=== PATIENT | male | born 1995 | race Caucasian/White ===

== ENCOUNTER 2017-12-21 02:12 | Emergency (ER) | payer OTHER ==
[2017-12-21] MEDS ORDERED: NORMAL SALINE 1000 ML 1,000 ML IV ONE (03:01)
[2017-12-21] MEDS ORDERED: ONDANSETRON HCL INJ/PF 4 MG/2 ML SDV IV ONE (03:01)
--- NOTE | 2017-12-21 03:01 | ER Document Report ---
ED GI/ - General Chief Complaint: Nausea/Vomiting/Diarrhea Stated Complaint: ABDOMINAL PAIN Time Seen by Provider: 12/21/17 03:00 Notes: The patient is a 22-year-old male, no past medical history, presents with 4 days of nausea, vomiting and watery diarrhea. He is also having some epigastric pain. Patient denies hematemesis, fevers, blood in his stool, urinary symptoms, chest pain, shortness of breath, recent travel, recent antibiotic use or back pain. TRAVEL OUTSIDE OF THE [place] IN LAST 30 DAYS: No - Related Data Allergies/Adverse Reactions: No Known Allergies Allergy (Unverified 12/21/17 02:12) Past Medical History - General Information source: Patient - Social History Smoking Status: Unknown if Ever Smoked Family History: Reviewed & Not Pertinent - Immunizations Immunizations up to date: Yes Hx Diphtheria, Pertussis, Tetanus Vaccination: Yes Review of Systems - Review of Systems Notes: REVIEW OF SYSTEMS: CONSTITUTIONAL: -fevers, -chills EENT: -eye pain, -difficulty swallowing, -nasal congestion CARDIOVASCULAR: -chest pain, -syncope. RESPIRATORY: -cough, -SOB GASTROINTESTINAL: +epigastric abdominal pain, +nausea, +vomiting, -diarrhea GENITOURINARY: -dysuria, -hematuria MUSCULOSKELETAL: -back pain, -neck pain SKIN: -rash or skin lesions. HEMATOLOGIC: -easy bruising or bleeding. LYMPHATIC: -swollen, enlarged glands. NEUROLOGICAL: -altered mental status or loss of consciousness, -headache, - neurologic symptoms PSYCHIATRIC: -anxiety, -depression. ALL OTHER SYSTEMS REVIEWED AND NEGATIVE. Physical Exam - Vital signs Vitals: Temp Pulse Resp BP Pulse Ox 98.3 F 100 18 124/70 99 12/21/17 02:15 12/21/17 02:15 12/21/17 02:15 12/21/17 02:15 12/21/17 02:15 - Notes Notes: PHYSICAL EXAMINATION: GENERAL: Well-appearing, well-nourished and in no acute distress. HEAD: Atraumatic, normocephalic. EYES: Pupils equal round and reactive to light, extraocular movements intact, sclera anicteric, conjunctiva are normal. ENT: nares patent, oropharynx clear without exudates. Moist mucous membranes. NECK: Normal range of motion, supple without lymphadenopathy LUNGS: Breath sounds clear to auscultation bilaterally and equal. No wheezes rales or rhonchi. HEART: Regular rate and rhythm without murmurs ABDOMEN: Soft, epigastric tenderness, normoactive bowel sounds. No guarding, no rebound. No masses appreciated. EXTREMITIES: Normal range of motion, no pitting or edema. No cyanosis. NEUROLOGICAL: Cranial nerves grossly intact. Normal speech, normal gait. Normal sensory and motor exams. PSYCH: Normal mood, normal affect. SKIN: Warm, Dry, normal turgor, no rashes or lesions noted. Course - Re-evaluation Re-evalutation: Patient feels much better after Zofran, fluids, Protonix and GI cocktail. His blood work is unremarkable, other than a leukocytosis, which is most likely related to his vomiting. He has no risk factors for C. difficile or concerning infectious causes of diarrhea. Instructed patient to continue to stay hydrated. Will send home with Zofran, Pepcid and given very strict return precautions. - Vital Signs Vital signs: Temp Pulse Resp BP Pulse Ox 98.7 F 74 16 127/70 H 100 12/21/17 05:07 12/21/17 05:07 12/21/17 05:07 12/21/17 05:07 12/21/17 05:07 - Laboratory Result Diagrams: 12/21/17 03:51 12/21/17 03:51 Laboratory results interpreted by me: 12/21/17 03:51 WBC 16.2 H Seg Neutrophils % 85.6 H Lymphocytes % 7.1 L Absolute Neutrophils 13.9 H Discharge - Discharge Clinical Impression: Nausea vomiting and diarrhea Condition: Stable Disposition: HOME, SELF-CARE Additional Instructions: VOMITING: Vomiting (or nausea without vomiting) can be caused by many other different problems. It can mean that something's wrong with the stomach, such as ulcers or inflammation or the intestinal tract, such as appendicitis. But it can also be a symptom of a problem that has nothing to do with the stomach or intestines. Vomiting is common with severe headaches, earaches, tonsillitis, and kidney infections, etc. We see it with pneumonia or heart attacks. Drugs can cause nausea and vomiting. Many abdominal problems cause vomiting; for example, gallstones, kidney stones, pancreatitis, and intestinal obstruction ( blocked bowels). In most cases, curing the vomiting depends on fixing the problem that caused it. For temporary relief, we may use an anti-nausea medicine. For home use, we can prescribe suppositories, chewable pills, pills that dissolve in the mouth, or liquid anti-nausea drugs. If the vomiting seems to be caused by a problem in the stomach, acid-suppressing drugs may be prescribed as well. It's important to avoid dehydration. Sip small amounts of clear liquids ( soft drinks, tea, broth, etc) . Try to take fluids frequently even if you are vomiting to prevent dehydration. Take increasing amounts of fluid and when liquids are being consumed successfully, advance to small amounts of bland food (toast, soups, mashed potatoes, etc.) until you are able to resume a regular diet. Avoid aspirin, tobacco, and alcohol. If the vomiting worsens, if the problem that's making you vomit worsens, or if there's evidence of bleeding in the stomach (such as black, tarry stool, or bloody or black vomit), you should return immediately. Also, return if abdominal pain worsens or becomes localized to one area or you develop high fever. Call your doctor if you aren't improved in 24 hours. DIARRHEA, NON-SPECIFIC: Diarrhea means frequent, watery stools. There are many causes. Any problem that keeps the intestinal tract from absorbing water from the stool can lead to diarrhea. A sudden new diarrhea problem is usually caused by a virus, food sensitivity, toxic bacteria, or drugs. In this case, we expect the problem to go away soon. Testing is done only if you seem seriously ill from the diarrhea. If you have chronic diarrhea, or diarrhea that keeps coming back, we need to find out why. Chronic diarrhea can be due to inflammation of the bowels such as Crohn's disease or ulcerative colitis, food sensitivity such as intolerance to lactose or wheat protein, irritable bowel syndrome, and other problems. If your diarrhea is a significant problem but it's not clear why you have it, we' ll refer you to a specialist for further testing. During an episode of diarrhea, drink small amounts (two to six ounces) of clear liquids (soft drinks, sport drinks, herb teas, broth, etc). Take fluids frequently to prevent dehydration. It's usually not a problem to take mild anti- diarrhea medication such as Kaopectate or Pepto-Bismol. As the diarrhea eases, advance to small amounts of bland food (mashed potato, toast) for 24 hours. Call the physician if blood appears in your vomit or stool, if vomiting lasts longer than 24 hours, if the abdominal pain worsens or becomes localized to one area, if you develop high fever, or if you become lightheaded and weak. VIRAL SYNDROME: The physician has diagnosed a viral infection. Viruses not only cause "colds," but can cause many different symptoms including generalized aching, fever, headache, cough, diarrhea, nausea, vomiting, and fatigue. The treatment, for the most part, is simply relief of symptoms. This means that antibiotics are usually not given. Rest, fluids, pain medications and, occasionally, medication for the specific symptoms that are most bothersome will be prescribed. Use good handwashing to avoid passing the virus to others. Shared toys should be cleaned with disinfectant. Clean the toilets, sinks, and counter surfaces in bathrooms. Launder clothing in hot water. Contact the physician if you develop any new or unusual symptoms such as severe headache, stiff neck, high fever, chest pain, productive cough, or shortness of breath. You should be rechecked if you don't see marked improvement within seven to 10 days. INTRAVENOUS (I V) FLUIDS: As part of your care today, you received intravenous (IV) fluids. IV fluids are administered to patients who are dehydrated or to those who have certain chemical (electrolyte) abnormalities that need correcting. ANTINAUSEA MEDICATION: You have been given a medication to suppress nausea and vomiting. This type of medication can be given as a shot, pill, or suppository. It will usually last for many hours. Pills and shots usually last six to eight hours. For the typical illness, only one or two doses of the medication may be necessary. Mild lightheadedness may occur. This type of medicine can cause drowsiness. Do not drive or operate dangerous machinery while under its influence. Do not mix with alcohol. See your doctor at once if you have muscle spasms or tightness, or uncontrollable motions (particularly of the neck, mouth, or jaw). Persistent vomiting or severe lightheadedness should also be evaluated by the physician. FOLLOW-UP CARE: If you have been referred to a physician for follow-up care, call the physician s office for an appointment as you were instructed or within the next two days. If you experience worsening or a significant change in your symptoms, notify the physician immediately or return to the Emergency Department at any time for re-evaluation. Prescriptions: Ondansetron [Zofran Odt 4 mg Tablet] 1 - 2 tab PO Q4H PRN #15 tab.rapdis PRN Reason: For Nausea/Vomiting Forms: Return to Work
[2017-12-21] MEDS ORDERED: PANTOPRAZOLE SODIUM 40 MG VIAL IV ONE (03:10)
[2017-12-21 04:01] LABS: ABSOLUTE EOSINOPHILS # (AUTO) 0.2 10^3/uL (0.0-0.6); ABSOLUTE LYMPHOCYTES (AUTO) 1.1 10^3/uL (0.5-4.7); ABSOLUTE NEUT (AUTO) 13.9 10^3/uL (1.7-8.2); BASOPHILS % (AUTO) 0.2 % (0-2); EOSINOPHILS % (AUTO) 0.9 % (0-6); HEMATOCRIT 42.2 % (37.9-51.0); HEMOGLOBIN 14.5 g/dL (13.5-17.0); LYMPHOCYTES % (AUTO) 7.1 % (13-45); MEAN CORPUSCULAR HEMOGLOBIN 29.3 pg (27.0-33.4); MEAN CORPUSCULAR HGB CONC 34.3 g/dL (32.0-36.0); MEAN CORPUSCULAR VOLUME 85 fl (80-97); MONOCYTES % (AUTO) 6.2 % (3-13); PLATELET COUNT 314 10^3/uL (150-450); RED BLOOD COUNT 4.94 10^6/uL (4.35-5.55); RED CELL DISTRIBUTION WIDTH 12.2 % (11.5-14.0); SEGMENTED NEUTROPHILS % (AUTO) 85.6 % (42-78); TOTAL CELLS COUNTED % (AUTO) 100 %; WHITE BLOOD COUNT 16.2 10^3/uL (4.0-10.5)
[2017-12-21 04:18] LABS: ALANINE AMINOTRANSFERASE 44 U/L (21-72); ALBUMIN 4.3 g/dL (3.5-5.0); ALKALINE PHOSPHATASE 89 U/L (38-126); ANION GAP 10 (5-19); ASPARTATE AMINO TRANSFERASE 31 U/L (17-59); BILIRUBIN,DIRECT 0.2 mg/dL (0.0-0.4); BILIRUBIN,TOTAL 0.4 mg/dL (0.2-1.3); BLOOD UREA NITROGEN 20 mg/dL (7-20); CALCIUM 9.5 mg/dL (8.4-10.2); CARBON DIOXIDE 25 mmol/L (22-30); CHLORIDE 106 mmol/L (98-107); GLUCOSE 89 mg/dL (75-110); LIPASE 123.5 U/L (23-300); SODIUM 140.9 mmol/L (137-145); TOTAL PROTEIN 6.6 g/dL (6.3-8.2)
[2017-12-21] MEDS ORDERED: MAG HYDROX/AL HYDROX/SIMETH SUSP 30 ML UDCUP PO ONE (04:42)
[2017-12-21] MEDS ORDERED: METOCLOPRAMIDE HCL ORAL SOLN 10 MG/10 ML UDCUP PO ONE (04:42)
[2017-12-21] MEDS ORDERED: LIDOCAINE 2% VISCOUS SOLN 20 ML UDCUP PO ONE (04:42)
[2017-12-21 05:08] VITALS: BP 127/70
== END 2017-12-21 05:07 | disposition home or self-care (01) ==
LOC: ER 02:12
DX: R11.2 Nausea with vomiting, unspecified (principal); R19.7 Diarrhea, unspecified; R10.13 Epigastric pain
CPT/HCPCS: 99283; 96361; 96374; 96375; 36415; 83690; 85025; 80053; J3490; S0164; J2405; J7030

== ENCOUNTER 2019-06-16 14:33 | Emergency (ER) | payer OTHER ==
--- NOTE | 2019-06-16 16:14 | PSYCHOLOGICAL NOTE ---
Psych Note - Psych Note Date seen by psych provider: 06/16/19 Time seen by psych provider: 15:07 - Chart review at 1507. Evaluation from 1547- 1557. Psych Note: Presenting Problem: SI and always has a plan. He reported "the past couple months have been rough, this has been going on for years since 2011 when I was in the [employer], I am diagnosed with PTSD (combat/ experience related)/Depression/Anxiety, I am not thinking anything right now, literally if I wanted to take my life I would have a way." He denied taking any action but would know what and how to do it. He admitted to previous SI attempt when he was , he had a gun, was going to shoot himself, his ex stopped him and got rid of the gun. He denied being on medication or seeking help while in the because "I was too embarrassed." He reported being connected with the local [facility] for medication management: Prozac 40MG QD and last Saturday as also started on Buspar 10MG TID (he has been taking it as prescribed since then, had pill bottles with him in his book bag). He also reported going to therapy 1- 2 times a week at the [facility]. He noted trigger to be his girlfriend broke up with him a couple weeks ago because "he needed to work on himself," they were friends for a year first, they still live together with her brother, and "I sleep down the fishman from the girl I still love I didn't think my best friend would not want anything to do with me." He denied previous MH hospitalizations. He stated [facility] at 1000 to go over the Buspar. He stated he feels like it is not working and is interested in medication changes now. Patient was alert and oriented x5, presented with depressed mood and flat affect, no observed psychosis given fair eye contact/dialogue conversation/engagement in evaluation and recent psychosocial stress. Diagnosis: 309.81 (F43.10) Posttraumatic Stress Disorder by Hx per patient 311 (F32.9) Unspecified Depressive Disorder by Hx per patient 300.00 (F41.9) Unspecified Anxiety Disorder by Hx per patient Medication recommendations made by the psychiatric medical provider, Dr. Valentina MD., includes: Decrease Prozac to 20MG daily for depression Decrease Buspar to 10MG twice a day for anxiety/calming effect/depression/sleep Add Zyprexa 2.5MG twice a day for mood stabilization/impulse control Impression/Plan: Recommendation to hold overnight with medication changes and discharge in morning so he can [facility]. Consulted with Dr. Ortiz regarding the management and care of patient. ED Physician made aware of recommendations.
[2019-06-16 17:41] LABS: ABSOLUTE BASOPHILS # (AUTO) 0.1 10^3/uL (0.0-0.2); ABSOLUTE EOSINOPHILS # (AUTO) 0.1 10^3/uL (0.0-0.6); ABSOLUTE LYMPHOCYTES (AUTO) 1.4 10^3/uL (0.5-4.7); ABSOLUTE MONOCYTES (AUTO) 0.6 10^3/uL (0.1-1.4); ABSOLUTE NEUT (AUTO) 4.2 10^3/uL (1.7-8.2); BASOPHILS % (AUTO) 1.2 % (0-2); EOSINOPHILS % (AUTO) 1.1 % (0-6); HEMATOCRIT 42.4 % (37.9-51.0); HEMOGLOBIN 14.4 g/dL (13.5-17.0); LYMPHOCYTES % (AUTO) 21.7 % (13-45); MEAN CORPUSCULAR HEMOGLOBIN 29.7 pg (27.0-33.4); MEAN CORPUSCULAR VOLUME 87 fl (80-97); MONOCYTES % (AUTO) 9.4 % (3-13); PLATELET COUNT 335 10^3/uL (150-450); RED BLOOD COUNT 4.86 10^6/uL (4.35-5.55); RED CELL DISTRIBUTION WIDTH 12.5 % (11.5-14.0); SEGMENTED NEUTROPHILS % (AUTO) 66.6 % (42-78); TOTAL CELLS COUNTED % (AUTO) 100 %; WHITE BLOOD COUNT 6.3 10^3/uL (4.0-10.5)
[2019-06-16 17:53] LABS: APPEARANCE,URINE CLEAR; BILIRUBIN,URINE NEGATIVE (NEGATIVE); COLOR,URINE AMBER; GLUCOSE, URINE NEGATIVE (NEGATIVE); KETONES,URINE TRACE mg/dL (NEGATIVE); LEUKOCYTE ESTERASE,URINE NEGATIVE (NEGATIVE); NITRITE,URINE NEGATIVE (NEGATIVE); PROTEIN,URINE 30 mg/dL (NEGATIVE); URINE SPECIFIC GRAVITY 1.033
[2019-06-16 18:01] LABS: ACETAMINOPHEN < 10 ug/mL (10-30); ALANINE AMINOTRANSFERASE 23 U/L (21-72); ALBUMIN 4.7 g/dL (3.5-5.0); ALCOHOL < 10 mg/dL (NONE DETECTED); ALKALINE PHOSPHATASE 100 U/L (38-126); ANION GAP 11 (5-19); ASPARTATE AMINO TRANSFERASE 23 U/L (17-59); BILIRUBIN,DIRECT 0.2 mg/dL (0.0-0.4); BILIRUBIN,TOTAL 0.6 mg/dL (0.2-1.3); BLOOD UREA NITROGEN 19 mg/dL (7-20); CALCIUM 10.3 mg/dL (8.4-10.2); CARBON DIOXIDE 28 mmol/L (22-30); CHLORIDE 103 mmol/L (98-107); GLUCOSE 85 mg/dL (75-110); POTASSIUM 4.4 mmol/L (3.6-5.0); SALICYLATE < 1.0 mg/dL (2.0-20.0); SODIUM 141.7 mmol/L (137-145); TOTAL PROTEIN 7.8 g/dL (6.3-8.2)
[2019-06-16 18:07] LABS: URINE AMPHETAMINES SCREEN NEGATIVE; URINE BARBITURATES SCREEN NEGATIVE; URINE BENZODIAZEPINES SCREEN NEGATIVE; URINE COCAINE SCREEN NEGATIVE; URINE MARIJUANA (THC) SCREEN NEGATIVE; URINE METHADONE SCREEN NEGATIVE; URINE PHENCYCLIDINE SCREEN NEGATIVE
[2019-06-16] MEDS ORDERED: FLUOXETINE HCL 20 MG CAPSULE PO ONE (18:47)
--- NOTE | 2019-06-16 18:51 | ER Document Report ---
Addendum entered and electronically signed by KEVIN NAIR DO 06/17/19 09:33: Discharge - Discharge Clinical Impression: Suicidal ideation Condition: Good Disposition: HOME, SELF-CARE Additional Instructions: Been evaluated both medical and behavioral health teams and have been deemed appropriate for discharge. Please follow-up with your outpatient mental health provider, the local [facility], at your previously scheduled appointment for today 06/17/2019 at 10 AM. Medication adjustments have been conducted with the following recommendations; please take as directed. please decrease your home medication of Prozac to 20 mg daily please decrease your home medication of BuSpar to 10 mg twice daily please add Zyprexa 2.5 mg twice daily; you have been provided a prescription for Zyprexa. DEPRESSION: Your evaluation reveals that you have mental depression. While symptoms may be vague, they often include disturbance of sleep, fatigue, loss of appetite, and general loss of interest in life. While depression may be a side effect of drugs, or a reaction to a major change in your life, many cases have no known cause. If depression is acute, and related to a major loss in your life, you can expect it to clear completely with time. If you have been depressed a long time, are prone to repeated bouts of depression or low mood, or have been thinking of suicide, get help. Depression can be treated with anti-depressant medication and counselling. Long-term depression will often take a few weeks to clear, even with appropriate medication. Follow-up care is important. SUICIDAL IDEATION: Suicidal ideation is a common medical term for thoughts about suicide, which may be as detailed as a formulated plan, without the suicidal act itself. Although most people who undergo suicidal ideation do not commit suicide, some go on to make suicide attempts. The range of suicidal ideation varies greatly from fleeting to detailed planning, role playing, and unsuccessful attempts. While thoughts about suicide are common, most people do not carry out serious actions to commit suicide. Based upon your evaluation and discussion with you, we do not believe you are currently at risk to act upon your thoughts of suicide. You have agreed to return to the Emergency Department, at any time, if you feel inclined to act upon your suicidal thoughts. FOLLOW-UP CARE: If you have been referred to a physician for follow-up care, call the physicians office for an appointment as you were instructed or within the next two days. If you experience worsening or a significant change in your symptoms, notify the physician immediately or return to the Emergency Department at any time for re-evaluation. Prescriptions: Olanzapine [Zyprexa 2.5 Mg Tablet] 2.5 mg PO BID 15 Days #30 tablet Forms: Elevated Blood Pressure [facility]errals: [facility] [[facility] Provider] - 06/17/19 10:00 am Course - Re-evaluation Re-evalutation: 06/17/19 09:32 Patient is doing much better. Has an appointment in a few minutes so we will discharge. We will continue with the Zyprexa. Patient discharged in stable condition. - Vital Signs Vital signs: Temp Pulse Resp BP Pulse Ox 98.2 F 66 18 123/71 99 06/17/19 04:26 06/17/19 04:26 06/17/19 04:26 06/17/19 04:26 06/17/19 04:26 - Laboratory Result Diagrams: 06/16/19 17:05 06/16/19 17:05 Laboratory results interpreted by me: 06/16/19 06/16/19 17:05 17:05 Calcium 10.3 H Urine Protein 30 H Urine Ketones TRACE H Urine Urobilinogen 2.0 H Salicylates < 1.0 L Acetaminophen < 10 L Addendum entered and electronically signed by BIJAL STEEN LCSWA 06/17/19 08:23: Discharge - Discharge Clinical Impression: Suicidal ideation Condition: Good Disposition: HOME, SELF-CARE Additional Instructions: Been evaluated both medical and behavioral health teams and have been deemed appropriate for discharge. [facility] your [facility] scheduled appointment for today 06/17/2019 at 10 AM. Medication adjustments have been conducted with the following recommendations; please take as directed. please decrease your home medication of Prozac to 20 mg daily please decrease your home medication of BuSpar to 10 mg twice daily please add Zyprexa 2.5 mg twice daily; you have been provided a prescription for Zyprexa. DEPRESSION: Your evaluation reveals that you have mental depression. While symptoms may be vague, they often include disturbance of sleep, fatigue, loss of appetite, and general loss of interest in life. While depression may be a side effect of drugs, or a reaction to a major change in your life, many cases have no known cause. If depression is acute, and related to a major loss in your life, you can expect it to clear completely with time. If you have been depressed a long time, are prone to repeated bouts of depression or low mood, or have been thinking of suicide, get help. Depression can be treated with anti-depressant medication and counselling. Long-term depression will often take a few weeks to clear, even with appropriate medication. Follow-up care is important. SUICIDAL IDEATION: Suicidal ideation is a common medical term for thoughts about suicide, which may be as detailed as a formulated plan, without the suicidal act itself. Although most people who undergo suicidal ideation do not commit suicide, some go on to make suicide attempts. The range of suicidal ideation varies greatly from fleeting to detailed planning, role playing, and unsuccessful attempts. While thoughts about suicide are common, most people do not carry out serious actions to commit suicide. Based upon your evaluation and discussion with you, we do not believe you are currently at risk to act upon your thoughts of suicide. You have agreed to return to the Emergency Department, at any time, if you feel inclined to act upon your suicidal thoughts. FOLLOW-UP CARE: If you have been referred to a physician for follow-up care, call the physicians office for an appointment as you were instructed or within the next two days. If you experience worsening or a significant change in your symptoms, notify the physician immediately or return to the Emergency Department at any time for re-evaluation. Forms: Elevated Blood Pressure Referrals: ER[facility] MORALES [Primary Care Provider] - 06/17/19 10:00 am Original Note: ED General - General Chief Complaint: Suicidal Ideation Stated Complaint: PSYCH EVAL/SUICIDAL IDEATION Time Seen by Provider: 06/16/19 17:26 Primary Care Provider: [facility] MORALES [Primary Care Provider] - Follow up as needed Mode of Arrival: Ambulatory Information source: Patient Notes: 23-year-old male with a history of depression, anxiety presents with complaint of suicidal ideation. Patient states recently he has been under increased stress when his significant other recently left him. He states he has had prior similar episodes and has had his weapon taken away from him previously for suicidal ideation. Patient has no specific plan at this time. He has no access to firearms. He has been taking his Prozac and BuSpar as prescribed and states that he does not feel that this is helping him. Patient will be held overnight and discharged to the local [facility] once evaluated by behavioral health. Patient denies homicidal ideation, visual and auditory hallucination. He denies any drug, alcohol or tobacco use. TRAVEL OUTSIDE OF THE [place] IN LAST 30 DAYS: No - HPI Onset: Other Onset/Duration: Gradual, Persistent Quality of pain: No pain Severity: None Associated symptoms: None. denies: Chest pain, Fever, Headache, Shortness of breath Exacerbated by: Denies Relieved by: Denies Similar symptoms previously: Yes Recently seen / treated by doctor: Yes - Related Data Allergies/Adverse Reactions: No Known Allergies Allergy (Verified 06/16/19 14:33) Past Medical History - General Information source: Patient - Social History Smoking Status: Never Smoker Chew tobacco use (# tins/day): No Frequency of alcohol use: None Drug Abuse: None Lives with: Alone Family History: Reviewed & Not Pertinent Patient has suicidal ideation: Yes Patient has homicidal ideation: No Renal/ Medical History: Denies: Hx Peritoneal Dialysis Psychiatric Medical History: Reports: Hx Post Traumatic Stress Disorder - Immunizations Immunizations up to date: Yes Hx Diphtheria, Pertussis, Tetanus Vaccination: Yes Review of Systems - Review of Systems Notes: REVIEW OF SYSTEMS: CONSTITUTIONAL : Denies fever, chills, or sweats. Denies recent illness. Denies weight loss, recent hospitalizations. EENT: Denies visual changes, eye pain. Denies sore throat, oral lesions, difficulty swallowing. CARDIOVASCULAR: Denies chest pain. Denies palpitations. Denies lower extremity edema. RESPIRATORY: Denies cough. Denies shortness of breath, wheezing. GASTROINTESTINAL: Denies abdominal pain or distention. Denies nausea, vomiting, or diarrhea. Denies blood in vomitus, stools, or per rectum. Denies black, tarry stools. Denies constipation. GENITOURINARY: Denies difficulty urinating, painful urination, frequency, blood in urine, testicular pain or penile discharge. MUSCULOSKELETAL: Denies back or neck pain or stiffness. Denies joint pain or swelling. SKIN: Denies rash, lesions or sores. HEMATOLOGIC : Denies easy bruising or bleeding. LYMPHATIC: Denies swollen glands. NEUROLOGICAL: Denies confusion or altered mental status. Denies loss of consciousness. Denies dizziness or lightheadedness. Denies headache. Denies weakness or paralysis. Denies problems difficulty with ambulation, slurred speech. Denies sensory loss, numbness, or tingling. Denies seizures. PSYCHIATRIC: + anxiety or stress. +depression, suicidal ideation, Physical Exam - Vital signs Vitals: Temp Pulse Resp BP Pulse Ox 98.1 F 68 14 128/66 H 98 06/16/19 14:44 06/16/19 14:44 06/16/19 14:44 06/16/19 14:44 06/16/19 14:44 - Notes Notes: PHYSICAL EXAMINATION: GENERAL: Well-appearing, well-nourished and in no acute distress. HEAD: Atraumatic, normocephalic. EYES: Pupils equal round and reactive to light, extraocular movements intact, sclera anicteric, conjunctiva are normal. ENT: Nares patent, oropharynx clear without exudates. Moist mucous membranes. NECK: Normal range of motion, supple without lymphadenopathy LUNGS: Breath sounds clear to auscultation bilaterally and equal. No wheezes rales or rhonchi. HEART: Regular rate and rhythm without murmurs ABDOMEN: Soft, nontender, nondistended abdomen. No guarding, no rebound. No masses appreciated. Musculoskeletal: Normal range of motion, no pitting or edema. No cyanosis. NEUROLOGICAL: Cranial nerves grossly intact. Normal speech, normal gait. Norm al sensory, motor exams PSYCH: Normal mood, normal affect. Admits to suicidal ideation. SKIN: Warm, Dry, normal turgor, no rashes or lesions noted. Course - Re-evaluation Re-evalutation: Laboratory 06/16/19 06/16/19 06/16/19 17:05 17:05 17:05 WBC 6.3 RBC 4.86 Hgb 14.4 Hct 42.4 MCV 87 MCH 29.7 MCHC 34.0 RDW 12.5 Plt Count 335 Seg Neutrophils % 66.6 Lymphocytes % 21.7 Monocytes % 9.4 Eosinophils % 1.1 Basophils % 1.2 Absolute Neutrophils 4.2 Absolute Lymphocytes 1.4 Absolute Monocytes 0.6 Absolute Eosinophils 0.1 Absolute Basophils 0.1 Sodium 141.7 Potassium 4.4 Chloride 103 Carbon Dioxide 28 Anion Gap 11 BUN 19 Creatinine 0.99 Est GFR ( Amer) > 60 Est GFR (Non-Af Amer) > 60 Glucose 85 Calcium 10.3 H Total Bilirubin 0.6 Direct Bilirubin 0.2 Neonat Total Bilirubin Not Reportable Neonat Direct Bilirubin Not Reportable Neonat Indirect Bili Not Reportable AST 23 ALT 23 Alkaline Phosphatase 100 Total Protein 7.8 Albumin 4.7 Urine Color LARISSA Urine Appearance CLEAR Urine pH 6.0 Ur Specific Dale 1.033 Urine Protein 30 H Urine Glucose (UA) NEGATIVE Urine Ketones TRACE H Urine Blood NEGATIVE Urine Nitrite NEGATIVE Urine Bilirubin NEGATIVE Urine Urobilinogen 2.0 H Ur Leukocyte Esterase NEGATIVE Urine WBC (Auto) 2 Urine RBC (Auto) 1 Urine Mucus (Auto) MANY Urine Ascorbic Acid NEGATIVE Salicylates < 1.0 L Urine Opiates Screen Urine Methadone Screen Acetaminophen < 10 L Ur Barbiturates Screen Ur Phencyclidine Scrn Ur Amphetamines Screen U Benzodiazepines Scrn Urine Cocaine Screen U Marijuana (THC) Screen Serum Alcohol < 10 06/16/19 17:19 WBC RBC Hgb Hct MCV MCH MCHC RDW Plt Count Seg Neutrophils % Lymphocytes % Monocytes % Eosinophils % Basophils % Absolute Neutrophils Absolute Lymphocytes Absolute Monocytes Absolute Eosinophils Absolute Basophils Sodium Potassium Chloride Carbon Dioxide Anion Gap BUN Creatinine Est GFR ( Amer) Est GFR (Non-Af Amer) Glucose Calcium Total Bilirubin Direct Bilirubin Neonat Total Bilirubin Neonat Direct Bilirubin Neonat Indirect Bili AST ALT Alkaline Phosphatase Total Protein Albumin Urine Color Urine Appearance Urine pH Ur Specific Dale Urine Protein Urine Glucose (UA) Urine Ketones Urine Blood Urine Nitrite Urine Bilirubin Urine Urobilinogen Ur Leukocyte Esterase Urine WBC (Auto) Urine RBC (Auto) Urine Mucus (Auto) Urine Ascorbic Acid Salicylates Urine Opiates Screen NEGATIVE Urine Methadone Screen NEGATIVE Acetaminophen Ur Barbiturates Screen NEGATIVE Ur Phencyclidine Scrn NEGATIVE Ur Amphetamines Screen NEGATIVE U Benzodiazepines Scrn NEGATIVE Urine Cocaine Screen NEGATIVE U Marijuana (THC) Screen NEGATIVE Serum Alcohol 23-year-old male presents with suicidal ideation. IVC petition initiated. Behavioral health was able to evaluate the patient and has made the following medication recommendations which include a decrease of Prozac from 40 mg daily to 20 mg daily and a decrease of BuSpar 10 mg 3 times daily to 10 mg twice daily. We will add Zyprexa 2.5 mg twice daily. Patient has been cooperative throughout his ED course. Cleared for disposition by behavioral health. No significant laboratory findings. 06/16/19 18:46 Psych Note: Presenting Problem: SI and always has a plan. He reported "the past couple months have been rough, this has been going on for years since 2011 when I was in the [employer], I am diagnosed with PTSD (combat/ experience related)/Depression/Anxiety, I am not thinking anything right now, literally if I wanted to take my life I would have a way." He denied taking any action but would know what and how to do it. He admitted to previous SI attempt when he was , he had a gun, was going to shoot himself, his ex stopped him and got rid of the gun. He denied being on medication or seeking help while in the because "I was too embarrassed." He reported being connected with the local [facility] for medication management: Prozac 40MG QD and last Saturday as also started on Buspar 10MG TID (he has been taking it as prescribed since then, had pill bottles with him in his book bag). He also reported going to therapy 1- 2 times a week at the [facility]. He noted trigger to be his girlfriend broke up with him a couple weeks ago because "he needed to work on himself," they were friends for a year first, they still live together with her brother, and "I sleep down the fishman from the girl I still love I didn't think my best friend would not want anything to do with me." He denied previous MH hospitalizations. He stated [facility] at 1000 to go over the Buspar. He stated he feels like it is not working and is interested in medication changes now. Patient was alert and oriented x5, presented with depressed mood and flat affect, no observed psychosis given fair eye contact/dialogue conversation/engagement in evaluation and recent psychosocial stress. 06/16/19 18:51 - Vital Signs Vital signs: Temp Pulse Resp BP Pulse Ox 98.1 F 68 14 128/66 H 98 06/16/19 14:44 06/16/19 14:44 06/16/19 14:44 06/16/19 14:44 06/16/19 14:44 - Laboratory Result Diagrams: 06/16/19 17:05 06/16/19 17:05 Laboratory results interpreted by me: 06/16/19 06/16/19 17:05 17:05 Calcium 10.3 H Urine Protein 30 H Urine Ketones TRACE H Urine Urobilinogen 2.0 H Salicylates < 1.0 L Acetaminophen < 10 L - EKG Interpretation by Me EKG shows normal: Sinus rhythm Rate: Normal Rhythm: NSR When compared to previous EKG there are: No significant change Discharge - Discharge Clinical Impression: Suicidal ideation Condition: Good Disposition: OTHER Forms: Elevated Blood Pressure [facility] - Follow up as needed
--- NOTE | 2019-06-16 19:05 | EKG REPORT ---
SEVERITY:- ABNORMAL ECG - SINUS RHYTHM PROBABLE LEFT VENTRICULAR HYPERTROPHY : Confirmed by: Andrae Fuller MD 16-Jun-2019 19:04:32
[2019-06-17 09:56] VITALS: BP 109/64
--- NOTE | 2019-06-17 15:03 | PSYCHOLOGICAL NOTE ---
Psych Note - Psych Note Date seen by psych provider: 06/17/19 Time seen by psych provider: 08:40 Psych Note: Presenting Problem passive suicidal ideation connected to increase stressors Check-in conducted with patient Patient denies any thoughts of wanting to harm himself or others. Mood is currently euthymic with congruent affect as evidenced by smiling engaging with clinician. He reports he is feeling much better and states he would like to continue taking the medications started. [facility] called the [facility] to notify them that patient will be discharged; however, may be a few minutes late for appointment. It was identified that the patient's appointment had been canceled for an unknown reason. Patient was able to be rescheduled for Saturday at 8 AM. Patient confirms he will be able to make this appointment. Further concerns at this time. Diagnosis: 309.81 (F43.10) Posttraumatic Stress Disorder by Hx per patient 311 (F32.9) Unspecified Depressive Disorder by Hx per patient 300.00 (F41.9) Unspecified Anxiety Disorder by Hx per patient Medication recommendations made by the psychiatric medical provider, Dr. Valentina MD., includes: Decrease Prozac to 20MG daily for depression Decrease Buspar to 10MG twice a day for anxiety/calming effect/depression/sleep Add Zyprexa 2.5MG twice a day for mood stabilization/impulse control Impression/Plan: Patient is cleared from acute psychiatric services. Patient was started on new medication and reports positive results. Patient denies any concerns current suicidal ideation (yesterday patient has passive suicidal ideation). [facility] however for some unknown reason the appointment was canceled. Clinician was able to have patient's appointment rescheduled for this 06/19/2019 at 8 AM. Patient confirms he can make this appointment. No further concerns are noted at this time. Dr. Ortiz was consulted and the care management of this patient; attending physicians in agreement with recommendations and disposition.
[2019-06-17] MEDS ORDERED: BUSPIRONE HCL 10 MG TABLET PO SCH (18:48)
[2019-06-17] MEDS ORDERED: OLANZAPINE 2.5 MG TABLET PO SCH (18:48)
== END 2019-06-17 10:00 | disposition home or self-care (01) ==
LOC: ER 14:33
DX: R45.851 Suicidal ideations (principal); F41.9 Anxiety disorder, unspecified; F32.9 Major depressive disorder, single episode, unspecified; Z79.899 Other long term (current) drug therapy; Z63.0 Problems in relationship with spouse or partner
CPT/HCPCS: 36415; 80053; 80307; 81001; 85025; 93005; 93010; 99285

== ENCOUNTER 2019-08-25 09:47 | Emergency (ER) | payer OTHER ==
[2019-08-25] MEDS ORDERED: MECLIZINE HCL 25 MG TABLET PO ONE (10:44)
--- NOTE | 2019-08-25 10:50 | ER Document Report ---
ED Dizziness/Weakness - General Chief Complaint: Dizziness Stated Complaint: DIZZINESS Time Seen by Provider: 08/25/19 10:33 Primary Care Provider: CARMEN,ERYN [Primary Care Provider] - Follow up as needed Mode of Arrival: Ambulatory Information source: Patient Notes: History of Present Illness Chief Complaint: Dizziness 24 years old male presents today with nearly 2 weeks history of on and off brief dizziness/spinning sensation. Lasts for a few seconds and goes away. He has a history of depression taking Prozac. Denies any headache denies any focal weakness. Denies any sinus conditions, denies any earache or ringing in the years. History obtained from patient Symptoms began: Today Onset: Gradual Timing: Constant, lasts hours, persists Quality: "spinning" Activity at onset: Rest Intensity: Moderate Location: Generalized Aggravating factors: None Relieving factors: None Denies neck pain or stiffness Denies visual loss or eye pain Denies head injury Denies incontinence, seizure, LOC Denies focal numbness Denies focal weakness Review of systems: All other systems negative as reviewed. CONSTITUTIONAL No fever. EYES No eye pain. ENT No URI symptoms, No sore throat, No ear pain. CARDIOVASCULAR No chest pain, No palpitations, No edema. RESPIRATORY No Cough, No SOB, No wheezing. GASTROINTESTINAL No abdominal pain, No vomiting, No diarrhea, No melena, No rectal bleeding. GENITOURINARY No UTI symptoms. MUSCULOSKELETAL No back pain. SKIN No Rash. NEUROLOGIC No Headache, No paralysis, No parathesias. ENDOCRINE No polyuria. HEMO/LYMPATIC Patient does not bruise easily. PSYCHIATRIC No depression. Physical Exam CONSTITUTIONAL Vital signs reviewed, Comfortable, Alert and oriented X 3. HEAD Atraumatic, Normal cephalic. EYES No discharge from eye, Sclera are not injected, Extraocular muscles intact, Conjunctiva are normal.perrl,2mm, no photophobia, right lateral horizontal nystagmus, fundi wnl. ENT Ears normal to inspection, Nose examination normal, Oropharynx normal, Mucous membranes pink, moist, normal in color. NECK Normal inspection, supple, Normal ROM, No jugular venous distention, No meningeal signs, no carotid bruit or tenderness. RESPIRATORY/CHEST Chest is non-tender, Breath sounds normal, No respiratory distress. CARDIOVASCULAR RRR, Heart sounds normal. ABDOMEN Abdomen is non-tender, No masses, Bowel sounds normal, No distension, No peritoneal signs. BACK Normal inspection. . NEURO Alert and oriented nonfocal SKIN Skin is warm and dry, No rash.Capillary refill normal. LYMPHATIC No adenopathy in neck. PSYCHIATRIC Normal affect. TRAVEL OUTSIDE OF THE [place] IN LAST 30 DAYS: No - HPI Notes: Dictated - Related Data Allergies/Adverse Reactions: No Known Allergies Allergy (Verified 08/25/19 09:58) Past Medical History - Social History Smoking Status: Never Smoker Chew tobacco use (# tins/day): No Frequency of alcohol use: None Drug Abuse: None Lives with: Family Family History: Reviewed & Not Pertinent Patient has suicidal ideation: No Patient has homicidal ideation: No Renal/ Medical History: Denies: Hx Peritoneal Dialysis Psychiatric Medical History: Reports: Hx Post Traumatic Stress Disorder - Immunizations Immunizations up to date: Yes Hx Diphtheria, Pertussis, Tetanus Vaccination: Yes Review of Systems - Review of Systems Notes: Dictated Physical Exam - Vital signs Vitals: Temp Pulse Resp BP Pulse Ox 99.4 F 72 16 112/63 100 08/25/19 10:01 08/25/19 10:01 08/25/19 10:01 08/25/19 10:01 08/25/19 10:01 - Notes Notes: Dictated Course - Vital Signs Vital signs: Temp Pulse Resp BP Pulse Ox 99.4 F 72 16 112/63 100 08/25/19 10:01 08/25/19 10:01 08/25/19 10:01 08/25/19 10:01 08/25/19 10:01 - Diagnostic Test Radiology reviewed: Reports reviewed - CT of the brain reported by radiologist as unremarkable Discharge - Discharge Clinical Impression: Benign positional vertigo Qualifiers: Laterality: right Qualified Code(s): H81.11 - Benign paroxysmal vertigo, right ear Condition: Fair Disposition: HOME, SELF-CARE Instructions: Vertigo ([facility]), Meclizine ([facility]) Prescriptions: Meclizine HCl [Antivert 12.5 mg Tablet] 12.5 mg PO BID #20 tablet [facility] - Follow up as needed
--- NOTE | 2019-08-25 11:31 | RADIOLOGY REPORT (SQ) ---
EXAM DESCRIPTION: CT HEAD WITHOUT COMPLETED DATE/TIME: 08/25/2019 11:19 am REASON FOR STUDY: Dizziness COMPARISON: None. TECHNIQUE: Axial images acquired through the brain without intravenous contrast. Images reviewed wi th bone, brain and subdural windows. Additional sagittal and coronal reconstructions were generated. Images stored on PACS. All CT scanners at this facility use dose modulation, iterative reconstruction, and/or weight based d osing when appropriate to reduce radiation dose to as low as reasonably achievable (ALARA). [facility]: Dose Right [facility]: CareDose [facility]: Dose Right [facility]: Teradose 4D [facility]: Interfolio RADIATION DOSE: CT Rad equipment meets quality standard of care and radiation dose reduction techniq ues were employed. CTDIvol: 53.2 mGy. DLP: 1044 mGy-cm. mGy. LIMITATIONS: None. FINDINGS: VENTRICLES: Normal size and contour. CEREBRUM: No masses. No hemorrhage. No midline shift. No evidence for acute infarction. Normal gra y/white matter differentiation. No areas of low density in the white matter. CEREBELLUM: No masses. No hemorrhage. No alteration of density. No evidence for acute infarction. EXTRAAXIAL SPACES: No fluid collections. No masses. ORBITS AND GLOBE: No intra- or extraconal masses. Normal contour of globe without masses. CALVARIUM: No fracture. PARANASAL SINUSES: No fluid or mucosal thickening. SOFT TISSUES: No mass or hematoma. OTHER: No other significant finding. IMPRESSION: No acute intracranial pathology. EVIDENCE OF ACUTE STROKE: NO. COMMENT: Quality ID # [id number]: Final reports with documentation of one or more dose reduction techniques (e.g., Automated exposure control, adjustment of the mA and/or kV according to patient size, use of iterative reconstruction technique) TECHNICAL DOCUMENTATION: JOB ID: [id number] [employer]- All Rights Reserved Reading location - IP/workstation name: [email or web address]
[2019-08-25 12:31] VITALS: BP 125/65
== END 2019-08-25 12:32 | disposition home or self-care (01) ==
LOC: ER 09:47
DX: H81.11 Benign paroxysmal vertigo, right ear (principal); F32.9 Major depressive disorder, single episode, unspecified; Z79.899 Other long term (current) drug therapy
CPT/HCPCS: 70450; 99284

== ENCOUNTER 2020-01-05 02:41 | Emergency (ER) | payer OTHER ==
[2020-01-05 09:15] VITALS: BP 117/66
--- NOTE | 2020-01-05 18:04 | ER Document Report ---
Entered by IGNACIO WALKER SCRIBE 01/05/20 0837 Acting as scribe for:TIANA COLE MD ED General - General Chief Complaint: Ear Pain Stated Complaint: EAR PAIN Time Seen by Provider: 01/05/20 07:43 Primary Care Provider: CARMEN,ERYN [Primary Care Provider] - Follow up as needed Information source: Patient Notes: 24 year old male presents to the emergency department with left ear pain that began 4 days ago. Patient mentions that there was no initial trauma. Patient states that he woke up and started noticing that his left ear "felt a little weird". Patient reports that it has been getting worse, "hurts to touch" and he "can barely hear out of it now". Patient reports that ibuprofen helps with the pain for a few hours. Patient denies fever, headache, dizziness, sore throat, and swimming recently. TRAVEL OUTSIDE OF THE [place] IN LAST 30 DAYS: No - Related Data Allergies/Adverse Reactions: No Known Allergies Allergy (Verified 01/05/20 03:13) Home Medications: gabapentin. lithium. araprazole. prozac Past Medical History - General Information source: Patient - Social History Smoking Status: Never Smoker Cigarette use (# per day): No Chew tobacco use (# tins/day): No Family History: Reviewed & Not Pertinent Patient has suicidal ideation: No Patient has homicidal ideation: No Psychiatric Medical History: Reports: Hx Depression - anxiety/ptsd, Hx Post Traumatic Stress Disorder Surgical Hx: Negative - Immunizations Immunizations up to date: Yes Hx Diphtheria, Pertussis, Tetanus Vaccination: Yes Review of Systems - Review of Systems Constitutional: No symptoms reported EENT: See HPI, Ear pain - Left ear Cardiovascular: No symptoms reported Respiratory: No symptoms reported Gastrointestinal: No symptoms reported Genitourinary: No symptoms reported Male Genitourinary: No symptoms reported Musculoskeletal: No symptoms reported Skin: No symptoms reported Hematologic/Lymphatic: No symptoms reported Neurological/Psychological: No symptoms reported -: Yes All other systems reviewed and negative Physical Exam - Vital signs Vitals: Temp Pulse Resp BP Pulse Ox 98.3 F 69 18 133/69 H 100 01/05/20 03:12 01/05/20 03:12 01/05/20 03:12 01/05/20 03:12 01/05/20 03:12 - Notes Notes: General: Alert, appears uncomfortable. HEENT: Normocephalic. Atraumatic. PERRLA. Extraocular movements intact. Oropharynx clear. Cerumen impaction bilaterally. Otitis externa left ear. Neck: Supple. Respiratory: No respiratory distress. Abdominal: Normal Inspection. No distension. Extremities: Moves all four extremities. Neurological: Normal cognition. AAOx4. Normal speech. Psychological: Normal affect. Normal Mood. Skin: Warm. Dry. Normal color. Course - Vital Signs Vital signs: Temp Pulse Resp BP Pulse Ox 98.3 F 69 18 133/69 H 100 01/05/20 03:12 01/05/20 03:12 01/05/20 03:12 01/05/20 03:12 01/05/20 03:12 Discharge - Discharge Clinical Impression: Otitis externa in other diseases classified elsewhere, left ear, Impacted cerumen of both ears Condition: Stable Disposition: HOME, SELF-CARE Instructions: Acetaminophen, Use of Ear Drops ([facility]), Otitis Externa ([facility]) Additional Instructions: Otitis Externa You have otitis externa -- an infection of the outer ear canal. This can be very painful. It's sometimes called "swimmer's ear," because it often occurs after prolonged water exposure. Many things, such as earwax and dirt in the ear, can contribute to it. The usual treatment is antibiotic/antiinflammatory ear drops. Occasionally, a wick will be placed in the ear to draw in the medicine. If the infection is severe, an oral antibiotic may be prescribed. Pain medication is often needed. Avoid getting water in the ear. Outer ear infections often take longer to heal than you might expect. Some tenderness and ache in the ear may persist for about two weeks. See your physician if you fail to improve as expected. Call the doctor at once if you develop fever, increasing swelling (particularly if it makes your ear "poke out"), severe headache, stiff neck, or decreased hearing. Continue use of ibuprofen as needed for pain. Consider following up with ear nose and throat doctor regarding cerumen impaction. Prescriptions: Ciprofloxacin HCl/Dexameth [Ciprodex Otic Suspension 7.5 ml Bottle] 4 drop OT BID #1 bottle Carbamide Peroxide [Debrox 6.5 % Otic Drops 15 ml] 10 drop OT TID #1 bottle Referrals: [facility] [Primary Care Provider] - Follow up as needed I personally performed the services described in the documentation, reviewed and edited the documentation which was dictated to the scribe in my presence, and it accurately records my words and actions.
== END 2020-01-05 09:15 | disposition home or self-care (01) ==
LOC: ER 02:41
DX: H61.23 Impacted cerumen, bilateral (principal); H62.43 Otitis externa in other diseases classified elsewhere, bilateral; H92.02 Otalgia, left ear; F32.9 Major depressive disorder, single episode, unspecified; Z79.899 Other long term (current) drug therapy
CPT/HCPCS: 99282

== ENCOUNTER 2020-01-19 16:49 | Emergency (ER) | payer OTHER ==
[2020-01-19] MEDS ORDERED: IBUPROFEN 600 MG TABLET PO ONE (18:47)
--- NOTE | 2020-01-19 18:49 | ER Document Report ---
ED Medical Screen (RME) - General Chief Complaint: Cold Symptoms Stated Complaint: FEVER,SORE THROAT,HEADACHE Time Seen by Provider: 01/19/20 18:40 Primary Care Provider: CARMEN,ERYN [Primary Care Provider] - Follow up as needed TRAVEL OUTSIDE OF THE [place] IN LAST 30 DAYS: No - HPI Notes: 01/19/20 18:47 24-year-old male presents emergency room for complaints of sore throat, body aches, vomiting x2 days ago. Tried [id number] DayQuil without for relief. Has not been exposed to sick contacts. Worse with time, nothing makes better. Decreased eating but drinking without issues. Denies any diarrhea, low back pain, severe headaches. Denies any chest pain or shortness of breath. Symptoms are progressive I have greeted and performed a rapid initial assessment of this patient. A comprehensive ED assessment and evaluation of the patient, analysis of test results and completion of the medical decision making process will be conducted by additional ED providers. PHYSICAL EXAMINATION: GENERAL: Well-appearing, well-nourished and in no acute distress. HEAD: Atraumatic, normocephalic. ENT: Pharynx with erythema and exudates, no lymphadenopathy NECK: Normal range of motion CV:tachycardia, s1, s2 regular LUNGS: No respiratory distress SKIN: Warm, Dry, normal turgor, no rashes or lesions noted. - Related Data Allergies/Adverse Reactions: No Known Allergies Allergy (Verified 01/19/20 18:40) Home Medications: gabapentin, aripripazole, lithium, fluoxetine Past Medical History - Social History Chew tobacco use (# tins/day): No Frequency of alcohol use: None Drug Abuse: None Renal/ Medical History: Denies: Hx Peritoneal Dialysis Psychiatric Medical History: Reports: Hx Depression, Hx Post Traumatic Stress Disorder - Immunizations Immunizations up to date: Yes Hx Diphtheria, Pertussis, Tetanus Vaccination: Yes Physical Exam - Vital signs Vitals: Temp Pulse Resp BP Pulse Ox 99.7 F 104 H 16 112/71 99 01/19/20 17:21 01/19/20 17:21 01/19/20 17:21 01/19/20 17:21 01/19/20 17:21 Course - Vital Signs Vital signs: Temp Pulse Resp BP Pulse Ox 99.7 F 104 H 16 112/71 99 02/18/20 17:21 01/19/20 17:21 01/19/20 17:21 01/19/20 17:21 01/19/20 17:21 Doctor's Discharge - Discharge Referrals: [facility] [Primary Care [facility]] - Follow up as needed
[2020-01-19 19:41] LABS: A TYPE INFLUENZA AG NEGATIVE (NEGATIVE); B INFLUENZA AG NEGATIVE (NEGATIVE)
[2020-01-19] MEDS ORDERED: AMOXICILLIN TR/POT CLAVULANATE ES 600-42.9 MG/5 ML 75 ML PO ONE (21:07)
--- NOTE | 2020-01-19 21:13 | ER Document Report ---
ED General - General Chief Complaint: Cold Symptoms Stated Complaint: FEVER,SORE THROAT,HEADACHE Time Seen by Provider: 01/19/20 18:40 Primary Care Provider: [facility] [Primary Care Provider] - Follow up as needed TRAVEL OUTSIDE OF THE [place] IN LAST 30 DAYS: No - HPI Onset: Other - 2-3 days Onset/Duration: Sudden Quality of pain: Achy Severity: Moderate Pain Level: 3 Context: 24 year old male - immunocompetent - arrives here from home with complaints of fever, chills and sore throat. Broke out in sweat at home. No sick contacts. Hurts to swallow. No rash. Occaisionally with a headahce but no back pain or stiff neck. - Related Data Allergies/Adverse Reactions: No Known Allergies Allergy (Verified 01/19/20 18:40) Home Medications: gabapentin, aripripazole, lithium, fluoxetine Past Medical History - General Information source: Patient - Social History Smoking Status: Never Smoker Chew tobacco use (# tins/day): No Frequency of alcohol use: None Drug Abuse: None Family History: Reviewed & Not Pertinent Patient has suicidal ideation: No Patient has homicidal ideation: No Renal/ Medical History: Denies: Hx Peritoneal Dialysis Psychiatric Medical History: Reports: Hx Depression, Hx Post Traumatic Stress Disorder - Immunizations Immunizations up to date: Yes Hx Diphtheria, Pertussis, Tetanus Vaccination: Yes Review of Systems - Review of Systems Constitutional: Chills, Fever EENT: No symptoms reported, Throat pain, Difficulty swallowing. denies: Nose congestion Cardiovascular: No symptoms reported Respiratory: No symptoms reported Gastrointestinal: No symptoms reported Genitourinary: No symptoms reported Male Genitourinary: No symptoms reported Musculoskeletal: No symptoms reported Skin: No symptoms reported Hematologic/Lymphatic: No symptoms reported Neurological/Psychological: No symptoms reported Physical Exam - Vital signs Vitals: Temp Pulse Resp BP Pulse Ox 99.7 F 104 H 16 112/71 99 01/19/20 17:21 01/19/20 17:21 01/19/20 17:21 01/19/20 17:21 01/19/20 17:21 Interpretation: Normal - General General appearance: Appears well, Alert - HEENT Head: Normocephalic, Atraumatic Eyes: Normal Pupils: PERRL Pharynx: Exudate, Tonsillar hypertrophy Neck: Anterior cervical chain. No: Kernig's, Meningismus - Respiratory Respiratory status: No respiratory distress Chest status: Nontender Breath sounds: Normal Chest palpation: Normal - Cardiovascular Rhythm: Regular Heart sounds: Normal auscultation Murmur: No - Abdominal Inspection: Normal Distension: No distension Bowel sounds: Normal Tenderness: Nontender Organomegaly: No organomegaly - Back Back: Normal, Nontender - Extremities General upper extremity: Normal inspection, Nontender, Normal color, Normal ROM, Normal temperature General lower extremity: Normal inspection, Nontender, Normal color, Normal ROM, Normal temperature, Normal weight bearing. No: Elena's sign - Neurological Neuro grossly intact: Yes Cognition: Normal Orientation: AAOx4 Tibbie Coma Scale Eye Opening: Spontaneous Ismael Coma Scale Verbal: Oriented Tibbie Coma Scale Motor: Obeys Commands Ismael Coma Scale Total: 15 Speech: Normal Motor strength normal: LUE, RUE, LLE, RLE Sensory: Normal - Psychological Associated symptoms: Normal affect, Normal mood - Skin Skin Temperature: Warm Skin Moisture: Dry Skin Color: Normal Course - Re-evaluation Re-evalutation: 01/19/20 21:11 MDM Healthy 24 year old with fever and sore throat. Sick for 3 days. No meningeal signs. Given the exudative pharngitis will treat even though the s trep screen is - - Vital Signs Vital signs: Temp Pulse Resp BP Pulse Ox 99.7 F 104 H 16 112/71 99 01/19/20 17:21 01/19/20 17:21 01/19/20 17:21 01/19/20 17:21 01/19/20 17:21 Discharge - Discharge Clinical Impression: Pharyngitis Qualifiers: Pharyngitis/tonsillitis etiology: unspecified etiology Qualified Code(s): J02.9 - Acute pharyngitis, unspecified Condition: Good Disposition: HOME, SELF-CARE Instructions: Sore Throat ([facility]), Strep Throat ([facility]) Additional Instructions: Take the medicine as directed. Take a second dose tonight. Prescriptions: Amox Tr/Potassium Clavulanate [Augmentin Es 600 mg-42.9 mg/5 ml Susp] 880 mg PO BID #1 bottle Referrals: [facility] [Primary Care [facility]] - Follow up as needed
[2020-01-19 21:30] VITALS: BP 108/61
== END 2020-01-19 21:31 | disposition home or self-care (01) ==
LOC: ER 16:49
DX: J02.9 Acute pharyngitis, unspecified (principal); R50.9 Fever, unspecified; R51 Headache
CPT/HCPCS: 87070; 87804; 87880; 99283; J3490

== ENCOUNTER 2020-01-20 07:49 | Emergency (ER) | payer OTHER ==
[2020-01-20] MEDS ORDERED: ACETAMINOPHEN 325 MG TABLET PO ONE (08:35)
[2020-01-20] MEDS ORDERED: NORMAL SALINE IV ONE (09:25)
[2020-01-20] MEDS ORDERED: IBUPROFEN 800 MG TABLET PO ONE (09:26)
[2020-01-20] MEDS ORDERED: ONDANSETRON HCL INJ/PF 4 MG/2 ML SDV IV ONE (09:26)
[2020-01-20 09:52] LABS: ABSOLUTE LYMPHOCYTES (AUTO) 0.9 10^3/uL (0.5-4.7); ABSOLUTE MONOCYTES (AUTO) 1.7 10^3/uL (0.1-1.4); ABSOLUTE NEUT (AUTO) 6.8 10^3/uL (1.7-8.2); BASOPHILS % (AUTO) 0.2 % (0-2); EOSINOPHILS % (AUTO) 0.1 % (0-6); HEMATOCRIT 38.9 % (37.9-51.0); HEMOGLOBIN 13.5 g/dL (13.5-17.0); LYMPHOCYTES % (AUTO) 9.6 % (13-45); MEAN CORPUSCULAR HEMOGLOBIN 30.3 pg (27.0-33.4); MEAN CORPUSCULAR HGB CONC 34.7 g/dL (32.0-36.0); MEAN CORPUSCULAR VOLUME 87 fl (80-97); MONOCYTES % (AUTO) 18.4 % (3-13); PLATELET COUNT 216 10^3/uL (150-450); RED BLOOD COUNT 4.46 10^6/uL (4.35-5.55); RED CELL DISTRIBUTION WIDTH 12.3 % (11.5-14.0); SEGMENTED NEUTROPHILS % (AUTO) 71.7 % (42-78); TOTAL CELLS COUNTED % (AUTO) 100 %; WHITE BLOOD COUNT 9.4 10^3/uL (4.0-10.5)
[2020-01-20 09:55] LABS: INTERNATIONAL RATION (INR) 1.09; PROTHROMBIN TIME 14.1 SEC (11.4-15.4)
[2020-01-20 10:10] LABS: A TYPE INFLUENZA AG NEGATIVE (NEGATIVE); B INFLUENZA AG NEGATIVE (NEGATIVE)
[2020-01-20 10:18] LABS: ALKALINE PHOSPHATASE 95 U/L (38-126); ANION GAP 12 (5-19); ASPARTATE AMINO TRANSFERASE 26 U/L (17-59); BILIRUBIN,DIRECT 0.2 mg/dL (0.0-0.4); BILIRUBIN,TOTAL 0.9 mg/dL (0.2-1.3); BLOOD UREA NITROGEN 12 mg/dL (7-20); CALCIUM 9.3 mg/dL (8.4-10.2); CARBON DIOXIDE 26 mmol/L (22-30); CHLORIDE 98 mmol/L (98-107); GLUCOSE 102 mg/dL (75-110); POTASSIUM 3.8 mmol/L (3.6-5.0); TOTAL PROTEIN 7.1 g/dL (6.3-8.2)
--- NOTE | 2020-01-20 10:24 | RADIOLOGY REPORT (SQ) ---
EXAM DESCRIPTION: CHEST 2 VIEWS COMPLETED DATE/TIME: 01/20/2020 9:57 am REASON FOR STUDY: fever COMPARISON: None. EXAM PARAMETERS: NUMBER OF VIEWS: two views TECHNIQUE: Digital Frontal and Lateral radiographic views of the chest acquired. RADIATION DOSE: NA LIMITATIONS: none FINDINGS: LUNGS AND PLEURA: No opacities, masses or pneumothorax. No pleural effusion. MEDIASTINUM AND HILAR STRUCTURES: No masses or contour abnormalities. HEART AND VASCULAR STRUCTURES: Heart normal size. No evidence for failure. BONES: No acute findings. HARDWARE: None in the chest. OTHER: No other significant finding. IMPRESSION: NO ACUTE RADIOGRAPHIC FINDING IN THE CHEST. TECHNICAL DOCUMENTATION: JOB ID: [id number] 2010 [employer]- All Rights Reserved Reading location - IP/workstation name: [email or web address]
[2020-01-20 10:42] LABS: VENOUS BLOOD BASE EXCESS 0.7 mmol/L; VENOUS BLOOD HCO3 24.9 mmol/L (20-32); VENOUS BLOOD PCO2 38.4 mmHg (35-63); VENOUS BLOOD PH 7.43 (7.30-7.42)
[2020-01-20 11:36] LABS: APPEARANCE,URINE CLEAR; BILIRUBIN,URINE NEGATIVE (NEGATIVE); COLOR,URINE YELLOW; GLUCOSE, URINE NEGATIVE (NEGATIVE); KETONES,URINE 20 mg/dL (NEGATIVE); LEUKOCYTE ESTERASE,URINE NEGATIVE (NEGATIVE); NITRITE,URINE NEGATIVE (NEGATIVE); PROTEIN,URINE NEGATIVE (NEGATIVE)
--- NOTE | 2020-01-20 12:01 | ER Document Report ---
ED General - General Chief Complaint: Nausea/Vomiting Stated Complaint: VOMITING Time Seen by Provider: 01/20/20 09:18 Primary Care Provider: CARMEN,ERYN [Primary Care Provider] - Follow up as needed Mode of Arrival: Medic Information source: Patient Notes: Patient presents complaining of sore throat for the past 4 days with nausea and vomiting. Patient states he is vomited 4 times today. Patient with fever. Patient states he was given Tylenol per EMS. Patient complains of generalized body aches. TRAVEL OUTSIDE OF THE [place] IN LAST 30 DAYS: No - HPI Onset: Other - 4 days Onset/Duration: Persistent Quality of pain: Achy Pain Level: 4 Associated symptoms: Body/muscle aches, Fever, Nausea, Vomiting, Sore throat. denies: Chest pain, Nonproductive cough Exacerbated by: Denies Relieved by: Denies Similar symptoms previously: Yes - Related Data Allergies/Adverse Reactions: No Known Allergies Allergy (Verified 01/20/20 08:28) Home Medications: gabapentin lithium fluoxtine Past Medical History - General Information source: Patient - Social History Smoking Status: Never Smoker Chew tobacco use (# tins/day): No Frequency of alcohol use: None Drug Abuse: None Occupation: None Family History: Reviewed & Not Pertinent Patient has suicidal ideation: No Patient has homicidal ideation: No Renal/ Medical History: Denies: Hx Peritoneal Dialysis Psychiatric Medical History: Reports: Hx Anxiety, Hx Bipolar Disorder, Hx D epression, Hx Post Traumatic Stress Disorder Surgical Hx: Negative - Immunizations Immunizations up to date: Yes Hx Diphtheria, Pertussis, Tetanus Vaccination: Yes Review of Systems - Review of Systems Constitutional: Chills, Diaphoresis, Fever EENT: Throat pain Cardiovascular: No symptoms reported. denies: Chest pain Respiratory: No symptoms reported. denies: Cough, Short of breath Gastrointestinal: Nausea, Vomiting. denies: Abdominal pain Genitourinary: No symptoms reported Male Genitourinary: No symptoms reported Musculoskeletal: Muscle pain Skin: No symptoms reported. denies: Rash Hematologic/Lymphatic: No symptoms reported Neurological/Psychological: No symptoms reported Physical Exam - Vital signs Vitals: Temp Pulse Resp BP Pulse Ox 102.5 F H 127 H 16 112/64 97 01/20/20 08:01 01/20/20 08:01 01/20/20 08:01 01/20/20 08:01 01/20/20 08:01 - General General appearance: Appears well, Alert In distress: None - HEENT Head: Normocephalic, Atraumatic Eyes: Normal Conjunctiva: Normal Nasal: Normal Mouth/Lips: Normal Mucous membranes: Normal Pharynx: Erythema, Exudate, Tonsillar hypertrophy. No: Peritonsillar abscess Neck: Lymphadenopathy, Supple - Respiratory Respiratory status: No respiratory distress Chest status: Nontender Breath sounds: Normal. No: Rales, Rhonchi, Stridor, Wheezing Chest palpation: Normal - Cardiovascular Rhythm: Tachycardia Heart sounds: S1 appreciated, S2 appreciated Murmur: No - Abdominal Inspection: Normal Distension: No distension Bowel sounds: Normal Tenderness: Nontender Organomegaly: No organomegaly - Back Back: Normal, Nontender. No: CVA tenderness - Extremities General upper extremity: Normal inspection, Normal strength General lower extremity: Normal inspection, Normal strength - Neurological Neuro grossly intact: Yes Cognition: Normal Fitzpatrick Coma Scale Eye Opening: Spontaneous Ismael Coma Scale Verbal: Oriented Fitzpatrick Coma Scale Motor: Obeys Commands Ismael Coma Scale Total: 15 - Psychological Associated symptoms: Normal affect, Normal mood - Skin Skin Temperature: Warm Skin Moisture: Dry Skin Color: Normal Course - Re-evaluation Re-evalutation: 01/20/20 12:00 Patient's vital signs have improved after administration of IV fluids. RN encouraged to repeat temperature at this time. Patient reports he is feeling somewhat better although does complain of continued throat discomfort. Patient with negative strep, influenza as well as mono test at this time. Will treat for likely viral etiology. Abdomen soft, no guarding. Patient without any additional emesis. Good return precautions discussed with patient. 01/20/20 12:05 Of note realized was that patient had been seen here yesterday for this complaint. Patient was given a prescription yesterday for his symptoms. Spoke with Dr. Tenorio who evaluated patient yesterday. - Vital Signs Vital signs: Temp Pulse Resp BP Pulse Ox 98.4 F 127 H 14 112/57 L 98 01/20/20 12:20 01/20/20 08:01 01/20/20 12:01 01/20/20 12:01 01/20/20 12:01 - Laboratory Result Diagrams: 01/20/20 09:32 01/20/20 09:32 Laboratory results interpreted by me: 01/20/20 01/20/2020 09:32 09:32 09:32 Lymph % (Auto) 9.6 L Grady % (Auto) 18.4 H Absolute Monos (auto) 1.7 H VBG pH Sodium 135.6 L Lactic Acid 0.5 L Urine Ketones Urine Urobilinogen 01/20/20 01/20/20 10:08 11:00 Lymph % (Auto) Grady % (Auto) Absolute Monos (auto) VBG pH 7.43 H Sodium Lactic Acid Urine Ketones 20 H Urine Urobilinogen 4.0 H 01/20/20 12:01 Labs- Entire Visit 01/20/20 01/20/20 01/20/20 09:32 09:32 09:32 WBC 9.4 RBC 4.46 Hgb 13.5 Hct 38.9 MCV 87 MCH 30.3 MCHC 34.7 RDW 12.3 Plt Count 216 Lymph % (Auto) 9.6 L Grady % (Auto) 18.4 H Eos % (Auto) 0.1 Baso % (Auto) 0.2 Absolute Neuts (auto) 6.8 Absolute Lymphs (auto) 0.9 Absolute Monos (auto) 1.7 H Absolute Eos (auto) 0.0 Absolute Basos (auto) 0.0 Seg Neutrophils % 71.7 PT 14.1 INR 1.09 VBG pH VBG pCO2 VBG HCO3 VBG Base Excess Sodium 135.6 L Potassium 3.8 Chloride 98 Carbon Dioxide 26 Anion Gap 12 BUN 12 Creatinine 1.01 Est GFR ( Amer) > 60 Est GFR (MDRD) Non-Af > 60 Glucose 102 Lactic Acid Calcium 9.3 Total Bilirubin 0.9 Direct Bilirubin 0.2 Neonat Total Bilirubin Not Reportable Neonat Direct Bilirubin Not Reportable Neonat Indirect Bili Not Reportable AST 26 ALT 23 Alkaline Phosphatase 95 Total Protein 7.1 Albumin 4.0 Urine Color Urine Appearance Urine pH Ur Specific [place] Urine Protein Urine Glucose (UA) Urine Ketones Urine Blood Urine Nitrite Urine Bilirubin Urine Urobilinogen Ur Leukocyte Esterase Urine WBC (Auto) Urine RBC (Auto) Urine Mucus (Auto) Urine Ascorbic Acid Monotest Influenza A (Rapid) Influenza B (Rapid) Group A Strep Rapid 01/20/20 01/20/20 01/20/20 09:32 09:32 09:32 WBC RBC Hgb Hct MCV MCH MCHC RDW Plt Count Lymph % (Auto) Grady % (Auto) Eos % (Auto) Baso % (Auto) Absolute Neuts (auto) Absolute Lymphs (auto) Absolute Monos (auto) Absolute Eos (auto) Absolute Basos (auto) Seg Neutrophils % PT INR VBG pH VBG pCO2 VBG HCO3 VBG Base Excess Sodium Potassium Chloride Carbon Dioxide Anion Gap BUN Creatinine Est GFR ( Amer) Est GFR (MDRD) Non-Af Glucose Lactic Acid 0.5 L Calcium Total Bilirubin Direct Bilirubin Neonat Total Bilirubin Neonat Direct Bilirubin Neonat Indirect Bili AST ALT Alkaline Phosphatase Total Protein Albumin Urine Color Urine Appearance Urine pH Ur Specific [place] Urine Protein Urine Glucose (UA) Urine Ketones Urine Blood Urine Nitrite Urine Bilirubin Urine Urobilinogen Ur Leukocyte Esterase Urine WBC (Auto) Urine RBC (Auto) Urine Mucus (Auto) Urine Ascorbic Acid Monotest NEGATIVE Influenza A (Rapid) NEGATIVE Influenza B (Rapid) NEGATIVE Group A Strep Rapid 01/20/20 01/20/20 01/20/20 10:08 10:08 11:00 WBC RBC Hgb Hct MCV MCH MCHC RDW Plt Count Lymph % (Auto) Grady % (Auto) Eos % (Auto) Baso % (Auto) Absolute Neuts (auto) Absolute Lymphs (auto) Absolute Monos (auto) Absolute Eos (auto) Absolute Basos (auto) Seg Neutrophils % PT INR VBG pH 7.43 H VBG pCO2 38.4 VBG HCO3 24.9 VBG Base Excess 0.7 Sodium Potassium Chloride Carbon Dioxide Anion Gap BUN Creatinine Est GFR ( Amer) Est GFR (MDRD) Non-Af Glucose Lactic Acid Calcium Total Bilirubin Direct Bilirubin Neonat Total Bilirubin Neonat Direct Bilirubin Neonat Indirect Bili AST ALT Alkaline Phosphatase Total Protein Albumin Urine Color YELLOW Urine Appearance CLEAR Urine pH 7.0 Ur Specific [place] 1.010 Urine Protein NEGATIVE Urine Glucose (UA) NEGATIVE Urine Ketones 20 H Urine Blood NEGATIVE Urine Nitrite NEGATIVE Urine Bilirubin NEGATIVE Urine Urobilinogen 4.0 H Ur Leukocyte Esterase NEGATIVE Urine WBC (Auto) 2 Urine RBC (Auto) 0 Urine Mucus (Auto) RARE Urine Ascorbic Acid NEGATIVE Monotest Influenza A (Rapid) Influenza B (Rapid) Group A Strep Rapid NEGATIVE - Diagnostic Test Radiology reviewed: Reports reviewed Discharge - Discharge Clinical Impression: Tonsillitis Fever Qualifiers: Fever type: unspecified Qualified Code(s): R50.9 - Fever, unspecified Nausea & vomiting Qualifiers: Vomiting type: unspecified Vomiting Intractability: non-intractable Qualified Code(s): R11.2 - Nausea with vomiting, unspecified Condition: Stable Disposition: HOME, SELF-CARE Instructions: Antinausea Medication ([facility]), Corticosteroid Medication ([facility]), Intravenous (IV) Fluids ([facility]), Tonsillitis ([facility]), Vomiting ([facility]) Additional Instructions: Return immediately for any new or worsening symptoms Followup with your primary care provider, call tomorrow to make a followup appointment Throat culture is pending, we will call if you need any different treatment Take Tylenol every 4 hours as needed for pain and fever relief, take ibuprofen [id number] every 6 hours for pain or fever relief. Get the prescriptions that you are prescribed yesterday filled and take as directed. Prescriptions: Ondansetron [Zofran Odt 4 mg Tablet] 1 tab PO Q6H #15 tab.rapdis [facility]errals: [facility] [[facility]] - Follow up as needed
[2020-01-20] MEDS ORDERED: DEXAMETHASONE SOD PHOS INJ 10 MG/1 ML VIAL IV ONE (12:03)
[2020-01-20 12:13] VITALS: BP 112/57
--- NOTE | 2020-01-20 22:33 | EKG REPORT ---
SEVERITY:- BORDERLINE ECG - SINUS RHYTHM BORDERLINE T ABNORMALITIES, DIFFUSE LEADS : Confirmed by: Heather Sierra 20-Jan-2020 22:32:04
== END 2020-01-20 12:20 | disposition home or self-care (01) ==
LOC: ER 07:49
DX: R11.2 Nausea with vomiting, unspecified (principal); J03.90 Acute tonsillitis, unspecified; R50.9 Fever, unspecified; M79.10 Myalgia, unspecified site; F31.9 Bipolar disorder, unspecified; F41.9 Anxiety disorder, unspecified; Z79.899 Other long term (current) drug therapy
CPT/HCPCS: 93005; 99284; 96361; 96374; 96375; 36415; 87040; 87070; 87880; 83605; 85025; 85610; 86308; 80053; 81001; 82803; 87804; 71046; 93010; J2405; J7030; J1100